=== PATIENT | male | born 1965 | race Hispanic/Latino ===

== ENCOUNTER 2021-05-22 07:43 | Emergency (ER) | payer OTHER ==
[~2021-05-22] VITALS: Ht 180.3 cm; Wt 87.1 kg
[2021-05-22] MEDS ORDERED: NA BORATE/BORIC AC/H2O/NACL 120 ML OPHTH IRRIG SOLN ONE (07:46)
[2021-05-22] MEDS ORDERED: TETRACAINE HCL 0.5% 4 ML OPHTH SOLN ONE (07:47)
[2021-05-22] MEDS ORDERED: FLUORESCEIN SODIUM 1 STRIP STRIP ONE (07:47)
[2021-05-22] MEDS ORDERED: MAXIOS OD (08:29)
[2021-05-22 08:50] VITALS: BP 135/74
== END 2021-05-22 08:57 | disposition home or self-care (01) ==
LOC: EDH 07:43
DX: T15.01XA Foreign body in cornea, right eye, initial encounter (principal); Z20.822 Contact with and (suspected) exposure to COVID-19; X58.XXXA Exposure to other specified factors, initial encounter; Y93.89 Activity, other specified; Y92.89 Other specified places as the place of occurrence of the external cause; Y99.8 Other external cause status
CPT/HCPCS: 65220; 87635; 99284; C9803

== ENCOUNTER 2021-06-16 22:41 | Emergency (ER) | payer OTHER ==
[~2021-06-16] VITALS: Ht 180.3 cm; Wt 87.5 kg
[~2021-06-16 22:41] MED LIST: MAXIOS OD
[2021-06-16 22:45] VITALS: BP 135/95
[2021-06-16] MEDS ORDERED: 0.9%NACL 1000ML 1,000 ML IV ONE ×2 (23:00)
[2021-06-16] MEDS ORDERED: FAMOTIDINE 20MG VIAL IV ONE (23:00)
[2021-06-16] MEDS ORDERED: ONDANSETRON 4MG INJ IVP ONE (23:00)
[2021-06-16 23:04] LABS: APPEARANCE,URINE Clear (CLEAR); BILIRUBIN,URINE Negative (NEGATIVE); COLOR,URINE Yellow (YELLOW); GLUCOSE, URINE (UA) Negative (NEGATIVE); KETONES,URINE 40 mg/dL (NEGATIVE); LEUKOCYTE ESTERASE ,URINE Negative (NEGATIVE); NITRATE,URINE Negative (NEGATIVE); OCCULT BLOOD,URINE Trace (NEGATIVE); PROTEIN,URINE Trace mg/dL (NEGATIVE)
[2021-06-16 23:06] LABS: BASOPHILS % (AUTO) 0.2 % (0.0-5.0); EOSINOPHILS % (AUTO) 0.5 % (0.0-8.0); HEMATOCRIT 43.8 % (42-54); LYMPHOCYTES % (AUTO) 13.5 % (21.0-51.0); MEAN CORPUSCULAR HEMOGLOBIN 30.1 pg (27.0-33.0); MEAN CORPUSCULAR HGB CONC 34.9 g/dL (32.0-36.0); MEAN CORPUSCULAR VOLUME 86.1 fL (79-99); MONOCYTES % (AUTO) 4.6 % (3.0-13.0); NEUTROPHILS % (AUTO) 81.1 % (40.0-77.0); PLATELET COUNT (AUTO) 180 K/uL (130-400); RED BLOOD CELL COUNT(AUTO) 5.09 MIL/uL (4.50-6.20); RED CELL DISTRIBUTION WIDTH 12.5 % (11.0-15.5); WHITE BLOOD COUNT (AUTO) 8.4 K/uL (4.8-10.8)
[2021-06-16 23:11] LABS: BACTERIA,URINE None Seen /HPF (None Seen); MUCUS,URINE Rare LPF (None Seen); RBC,URINE 0-1 /HPF (0-1); SQUAMOUS EPITHELIAL CELL,UR Rare /HPF (0-2); WBC,URINE None Seen /HPF (0-1)
[2021-06-16 23:15] LABS: CREATININE 0.8 mg/dL (0.5-1.5); POTASSIUM 3.9 mmol/L (3.5-5.1)
[2021-06-16 23:24] LABS: ALBUMIN 4.4 g/dL (3.5-5.0); BILIRUBIN,TOTAL 1.1 mg/dL (0.2-1.0); TOTAL PROTEIN, SERUM 8.3 g/dL (6.0-8.3)
[2021-06-16] MEDS ORDERED: KETOROLAC 15MG/ML VIAL (15MG/ML) IV ONE (23:30)
[2021-06-17] MEDS ORDERED: DICY20TA2 PO (00:01)
[2021-06-17] MEDS ORDERED: L.AC1CAP6 PO (00:01)
[2021-06-17] MEDS ORDERED: ONDA4TAB10 PO (00:01)
== END 2021-06-17 00:25 | disposition home or self-care (01) ==
LOC: EDH 22:41
DX: K52.9 Noninfective gastroenteritis and colitis, unspecified (principal); E86.0 Dehydration; I10 Essential (primary) hypertension; K21.9 Gastro-esophageal reflux disease without esophagitis; Z79.1 Long term (current) use of non-steroidal anti-inflammatories (NSAID); Z79.899 Other long term (current) drug therapy; Z86.16 Personal history of COVID-19
CPT/HCPCS: 36415; 80053; 81001; 84484; 85025; 93005; 96374; 96375; 99284; J1885; J2405; J3490; J7030 ×2